=== PATIENT | male | born 1965 | race Caucasian/White ===

== ENCOUNTER 2017-03-23 06:13 | Emergency (ER) | payer OTHER, BC ==
[~2017-03-23] VITALS: Ht 182.9 cm; Wt 122.0 kg
[~2017-03-23 06:13] MED LIST: FLEXERIL10 MG PO; IBU-8800 MG PO; NAPROXEN250 MG PO; NOMEDS *; NORCO 325 MG-51 TAB PO; PHENERGAN 25MG.25 M1 PO; TERBINAFINE250 MG PO; VICODIN 5/500 T1 TAB PO
--- OUTSIDE RECORDS SUMMARY | 2017-03-23 06:33 | External Medical Summary Rpt | CCD ---
Demographics Preferred Language Tamazight Marital Status Unknown Rastafarian Affiliation Unknown Race Unknown Ethnic Group Unknown Author Author , ORACIO NARAYANAN Address Unknown Phone Immunization Unable to retrieve immunization data due to connection failure with Immunization Registry. Please try again later.
--- OUTSIDE RECORDS SUMMARY | 2017-03-23 06:33 | External Medical Summary Rpt ---
Author Author ORACIO Jennings, [employer] Organization [employer] Address Unknown Phone Unavailable
--- OUTSIDE RECORDS SUMMARY | 2017-03-23 06:33 | External Medical Summary Rpt | CCD ---
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 Name Role Phone [facility] Purpose Continuity of Care Document - 06-15-2012 through 2016 Problems Code Diagnosis DOS Provider Status 356.9 356.9 IDIO 06-15-2012 [facility] NOS N23 UNSPECIFIED RENAL COLIC Allergies, Adverse Reactions, Alerts Type Allergy to substance Drug Allergy Adverse Reaction to Substance Substance Reaction Severity INGREDIENT: NO KNOWN Unknown Unknown - NO KNOWN DRUG ALLERGY NO KNOWN DRUG Unknown Unknown ALLERGIES Vital Signs 06-15-2012 15:09 Name Value Interpretat Reference Comment ion Range BP 86 mm[Hg] Diastolic BP Systolic 141 mm[Hg] Heart 65 /min Rate/Pulse O2% 100 % Respiratory 20 /min Rate 06-15-2012 13:33 Name Value Interpretat Reference Comment ion Range BP 95 mm[Hg] Diastolic BP Systolic 132 mm[Hg] Heart 77 /min Rate/Pulse O2% 99 % Respiratory 20 /min Rate Results Labs Lab Lab Date Result Refere Interp Status Commen Order Detail nces retati t Range on Glucose BldC Glucomtr-mCnc (06-15-2012 14:02) Glucose 141 70-110 complet BldC 013 mg/dl ed Glucomt 14:02 r-mCnc COMPREHENSIVE METABOLIC PANEL (06-15-2012 13:00) Glucose 100 74-106 complet 013 mg/dL ed Bld-mCn 13:00 c BUN 16 7-18 complet Bld-mCn 013 mg/dL ed c 13:00 Creat 1.1 0.8-1.3 complet SerPl-m 013 mg/dL ed Cnc 13:00 ESTIMAT 141 50-200 complet ED 013 ML/MIN ed CREATIN 13:00 INE CLEARAN CE GFR 72 Greater complet (ESTIMA 013 ML/MIN than ed JIM) 13:00 60 Sodium 138 136-145 complet SerPl-s 013 mmoL/L ed Cnc 13:00 Potassi 4.1 3.5-5.1 complet um 013 mmoL/L ed SerPl-s 13:00 Cnc Chlorid 103 98-107 complet e 013 mmoL/L ed SerPl-s 13:00 Cnc CO2 25 21.0-32 complet SerPl-s 013 mmoL/L .0 ed Cnc 13:00 Calcium 8.9 8.5-10. complet 013 mg/dL 1 ed SerPl-m 13:00 Cnc Prot 7.6 6.4-8.2 complet SerPl-m 013 gm/dL ed Cnc 13:00 Albumin 3.4 3.4-5.0 complet 013 gm/dL ed SerPl-m 13:00 Cnc Globuli 4.2 1.3-3.2 complet n 013 gm/dL ed Ser-mCn 13:00 c Albumin 0.8 UNK 1.1-1.8 complet /Glob 013 ed SerPl-m 13:00 Rto Bilirub 0.3 0.2-1.0 complet 013 mg/dL ed SerPl-m 13:00 Cnc AST 12 U/L 15-37 complet SerPl-c 013 ed Cnc 13:00 ALT 40 U/L 30-65 complet SerPl-c 013 ed Cnc 13:00 ALP 97 U/L 50-136 complet SerPl-c 013 ed Cnc 13:00 URIC ACID (06-15-2012 13:00) URIC 5.6 2.6-7.2 complet ACID 013 mg/dL ed 13:00 CBC with AUTO DIFF (06-15-2012 13:00) WBC # 06-15-2 8.8 4.8-10. complet Bld 013 K/MM3 8 ed Auto 13:00 RBC # 06-15-2 5.56 4.6-6.2 complet Bld 013 M/mm3 ed Auto 13:00 Hgb 2 13.8 14.1-18 complet Bld-mCn 013 g/dL .0 ed c 13:00 Hct Fr 41.6 % 42.0-52 complet Bld 013 .0 ed 13:00 MCV RBC 74.9 fl 82.2-97 complet 013 .8 ed 13:00 MCH RBC 24.9 pg 27-31.2 complet Qn 013 ed Auto 13:00 MEAN 33.2 31.8-35 complet CORPUSC 013 g/dl .4 ed ULAR 13:00 HGB CONC RDW RBC 14.2 % 11.5-17 complet Auto 013 .5 ed 13:00 Platele 360 142-424 complet t Bld 013 K/mm3 ed Ql 13:00 Manual MEAN 6.5 fl 7.4-10. complet PLATELE 013 4 ed T 13:00 VOLUME Granulo 2 56.7 % 37.0-80 complet cytes 013 .0 ed Fr Bld 13:00 Auto LYMPH % 06-15-2 36.5 % 10-50 complet 013 ed 13:00 Monocyt 06-15-2 4.2 % 1.7-9.3 complet es Fr 013 ed Bld 13:00 Auto Eosinop 06-15-2 1.9 % 0.1-12. complet hil Fr 013 0 ed Bld 13:00 Auto Basophi 06-15-2 0.8 % 0.1-2.0 complet ls Fr 013 ed Bld 13:00 Auto Granulo 06-15-2 5.0 1.3-8.0 complet cytes # 013 K/mm3 ed Bld 13:00 Auto Lymphoc 06-15-2 3.2 0.7-4.5 complet ytes Fr 013 K/mm3 ed Bld 13:00 Auto Monocyt -28-2 0.4 0.1-1.0 complet es # 013 K/mm3 ed Bld 13:00 Auto Eosinop 06-15-2 0.2 0.0-0.4 complet hil # 013 K/mm3 ed Bld 13:00 Auto Basophi 0.1 0-0.2 complet ls # 013 K/MM3 ed Bld 13:00 Auto GLYCOHEMOGLOBIN (A1c) (06-15-2012 13:00) HEMOGLO 6.0 % 0.0-7.0 complet BIN A1C 013 ed 13:00 Encounters Encounter Start End Date Code Location Performer Type Date Emergency YVON Deshpande (ER) 3 13:09 3 15:10 [facility]
--- OUTSIDE RECORDS SUMMARY | 2017-03-23 06:33 | External Medical Summary Rpt | CCD ---
Author Author [employer] Organization [employer] Address Unknown Phone Unavailable Purpose Continuity of Care Document - through 2016
--- OUTSIDE RECORDS SUMMARY | 2017-03-23 06:33 | External Medical Summary Rpt | CCD ---
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
--- OUTSIDE RECORDS SUMMARY | 2017-03-23 06:33 | External Medical Summary Rpt | CCD ---
Demographics Preferred Language Bengali Marital Status Unknown Zoroastrianism Affiliation Unknown Race Unknown Ethnic Group Unknown Author Author , ORACIO NARAYANAN Address Unknown Phone Immunization Unable to retrieve immunization data due to connection failure with Immunization Registry. Please try again later.
[2017-03-23] MEDS ORDERED: MOBIC15 MG PO (07:37)
[2017-03-23] MEDS ORDERED: ULTRAM50 MG PO (07:37)
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
[2017-03-23 07:50] VITALS: BP 137/78
== END 2017-03-23 07:50 | disposition home or self-care (01) ==
LOC: ER 06:13
DX: S20.212A Contusion of left front wall of thorax, initial encounter (principal); S63.92XA Sprain of unspecified part of left wrist and hand, initial encounter; V89.2XXA Person injured in unspecified motor-vehicle accident, traffic, initial encounter